=== PATIENT | female | born 1975 | race Caucasian/White ===

== ENCOUNTER 2022-10-24 07:28 | Emergency (ER) | payer OTHER ==
[2022-10-24] MEDS ORDERED: Ondansetron PF 4 MG/2 ML Vial ONE ×2 (07:54→10:56)
[2022-10-24] MEDS ORDERED: Pantoprazole 40 MG VIAL ONE (08:15)
[2022-10-24] MEDS ORDERED: Morphine 4 MG/ML VIAL ONE ×2 (08:15→10:56)
[2022-10-24 08:21] LABS: #Basophils 0.1 thou/uL (0.0-0.2); #Eosinphils 0.5 thou/uL (0.0-0.7); #Monocytes 0.9 thou/uL (0.11-0.59); #Neutrophils 9.1 thou/uL (1.40-6.50); %Basophils 0.8 % (0.0-1.0); %Eosinophils 3.9 % (0.0-10.0); %Lymphocytes 18.9 % (21.0-51.0); %Monocytes 6.9 % (0.0-10.0); %Neutrophils 68.6 % (42.0-75.0); Hemoglobin 12.1 g/dL (12.0-16.0); Mean Corpuscular HGB CONC 34.6 g/dL (32.0-36.0); Mean Corpuscular Hemoglobin 32.1 pg (27.0-31.0); Mean Corpuscular Volume 92.8 fl (78.0-98.0); Mean Platelet Volume 10.6 fL (7.4-10.4); Platelet Count 326 10x3/uL (130-400); RBC Distribution Width 12.1 % (11.5-14.5); Red Blood Cell (RBC) Count 3.77 mill/uL (4.20-5.40); White Blood Cell (WBC) Count 13.3 10x3/uL (4.8-10.8)
[2022-10-24 08:24] LABS: Bacteria/HPF None Seen HPF (None Seen); Bilirubin Negative (Negative); Blood, Urine Trace (Negative); CAUTI Indications for Culture Dysuria,urgency,freq; Clarity Clear (Clear); Glucose, Urine (Dipstick) Normal (Negative); Ketone, Urine 20 mg/dL (Negative); Leukocyte Negative Leu/uL (Negative); Nitrite Negative (Negative); Protein, Urine (Dipstick) Negative (Neg-Trace); Specific Gravity, Urine 1.022 (1.002-1.036); Urobilinogen Normal mg/dL (Less than 2); WBC/HPF 0-3 HPF (0-3); pH, Urine 5.5 (5.0-9.0)
[2022-10-24 08:26] LABS: Pregnancy Test - Urine (BHCG) Negative (Negative); Pregu Control Background? CLEAR/WHITE (CLR/WHITE); Pregu Control Bar Appear? YES (CONTROL BAR); Specific Gravity 1.022 (1.002-1.036); Urine Culture Reflex No No
[2022-10-24 10:32] LABS: ALT (SGPT) 17 U/L (8-55); AST (SGOT) 14 U/L (5-34); Albumin 3.7 g/dL (3.5-5.0); Alkaline Phosphatase 83 U/L (40-110); Anion Gap 10 mmol/L (10-20); BUN (Urea Nitrogen) 37 mg/dL (7.0-18.7); Bilirubin, Total 0.5 mg/dL (0.2-1.2); Calc. Creatinine Clearance 0 mL/min (70-130); Calcium 8.4 mg/dL (7.8-10.44); Carbon Dioxide 22 mmol/L (22-29); Chloride 106 mmol/L (98-107); Estimated GFR 111; Globulin 2.6 g/dL (2.4-3.5); Glucose 104 mg/dL (70-105); Lipase 46 U/L (8-78); Potassium 4.1 mmol/L (3.5-5.1); Protein, Total 6.3 g/dL (6.0-8.3); Sodium 134 mmol/L (136-145)
[2022-10-24] MEDS ORDERED: Fleet Saline Enema 133 ML BOT PR SCH (11:15)
[2022-10-24] MEDS ORDERED: Iopamidol-370 76% 500 ML MDV (1 ML CHARGE) ONE (11:46)
[2022-10-24] MEDS ORDERED: Promethazine HCl 25 MG/ML VIAL ONE (12:45)
== END 2022-10-24 13:58 | disposition home or self-care (01) ==
LOC: ERS 07:28
DX: K59.00 Constipation, unspecified (principal)
CPT/HCPCS: 36415; 70450; 70486; 74177; 76856; 80053; 81001; 81025; 83690; 85025; 93005; 96361; 96374; 96375; 96376; C9113; J2270; J2405; J2550; Q9967

== ENCOUNTER 2022-11-20 13:15 | Outpatient (CLI) | payer OTHER | END 2022-11-20 13:16 | disposition home or self-care (01) | LOC: NM 13:15 | PROVIDERS: ATTEND Internal Medicine Gastroenterology | DX: R10.13 Epigastric pain (principal); K92.1 Melena; K59.00 Constipation, unspecified; Z83.71 Family history of colonic polyps | CPT/HCPCS: 78227; A9537 ==

== ENCOUNTER 2022-12-10 09:13 | Day surgery (SDC) | payer OTHER ==
[2022-12-08 12:46] VITALS: BMI 23.6
[2022-12-10] MEDS ORDERED: Acetaminophen 500 MG TAB ONE (09:34)
[2022-12-10] MEDS ORDERED: Bupivacaine 0.25% HCL 30 ML VIAL ONE (11:12)
[2022-12-10] MEDS ORDERED: EPINEPHrine 1 MG/ML AMP ONE (11:12)
[2022-12-10] MEDS ORDERED: Midazolam HCl 2 mg/2 ml Vial ONE (11:19)
[2022-12-10] MEDS ORDERED: Famotidine/PF 20 mg/2ml Vial ONE (11:19)
[2022-12-10] MEDS ORDERED: Scopolamine 1.5 mg/72 hour Patch ONE (11:19)
[2022-12-10] MEDS ORDERED: Sodium Chloride 0.9% 100 ML ONE (11:20)
[2022-12-10] MEDS ORDERED: CEFAZOLIN 2 GM VIAL ONE (11:20)
[2022-12-10] MEDS ORDERED: fentaNYL PF 100 MCG/2 ML SYRINGE ONE (11:22)
[2022-12-10] MEDS ORDERED: SUGAMMADEX SODIUM 200 MG/2 ML VIAL ONE (11:22)
[2022-12-10] MEDS ORDERED: Rocuronium Bromide 10 MG/ML (10ML VIAL) ONE (11:30)
[2022-12-10] MEDS ORDERED: diphenhydrAMINE 50 MG/ML VIAL ONE (11:30)
[2022-12-10] MEDS ORDERED: Ondansetron PF 4 MG/2 ML Vial ONE (11:30)
[2022-12-10] MEDS ORDERED: PROPOFOL 200 MG/20 ML VIAL ONE (11:30)
[2022-12-10] MEDS ORDERED: Lidocaine 1% PF 5 ML VIAL ONE (11:30)
[2022-12-10] MEDS ORDERED: Dexamethasone 20 MG/5 ML VIAL ONE (11:30)
[2022-12-10] MEDS ORDERED: fentaNYL 50 mcg/mL 1 mL Vial ONE ×2 (12:29→13:03)
[2022-12-10] MEDS ORDERED: Promethazine HCl 25 MG/ML VIAL ONE (12:29)
[2022-12-10] MEDS ORDERED: Morphine 2 MG/ML VIAL ONE (13:42)
== END 2022-12-10 14:16 | disposition home or self-care (01) ==
LOC: SDC 09:13
PROVIDERS: ATTEND Specialist
PROC: 0FT44ZZ Resection of Gallbladder, Percutaneous Endoscopic Approach (ICD-10-PCS; principal; 2022-12-10)
DX: K80.10 Calculus of gallbladder with chronic cholecystitis without obstruction (principal); K82.8 Other specified diseases of gallbladder; Z79.899 Other long term (current) drug therapy
CPT/HCPCS: 88304; C1889; J0171; J1100; J1200; J2250; J2272; J2405; J2550; J2704; J3010; J3490; S0020; S0028